=== PATIENT | male | born 1990 | race Caucasian/White ===

== ENCOUNTER 2020-08-12 12:17 | Emergency (ER) | payer OTHER ==
[2020-08-12] MEDS ORDERED: CEFAZOLIN 1 GM in DEXTROSE 5%-WATER - 50 ML IVPB ONE (12:25)
[2020-08-12] MEDS ORDERED: DIPHTH,PERTUSS(ACELL),TET 0.5 ML DISP.SYRIN IM ONE ×2 (12:25→12:43)
[2020-08-12] MEDS ORDERED: KETOROLAC TROMETHAMINE 30 MG/1 ML VIAL IVPUSH ONE (12:29)
[2020-08-12] MEDS ORDERED: KETOROLAC TROMETHAMINE 30 MG/1 ML VIAL ONE (12:31)
[2020-08-12 12:32] VITALS: BMI 24.3
[2020-08-12] MEDS ORDERED: ceFAZolin SODIUM 1 GM VIAL ONE (12:43)
[2020-08-12 13:20] LABS: BASO % 0.4 % (0-2.0); EOS % 1.6 % (0-4.5); HEMOGLOBIN 16.1 GM/dl (11.7-16.9); LYMPH % 32.3 % (8-40); MCH 29.8 pg (25.7-33.7); MCHC 35.1 g/dl (32.0-35.9); MEAN CELL VOLUME 84.9 fl (80-96); MEAN PLT VOLUME 7.7 fl (7.5-11.1); MONO % 8.2 % (3.8-10.2); NEUT % 57.5 % (42.8-82.8); PLATELET COUNT 264 K/MM3 (134-434); RBC 5.42 M/mm3 (4.00-5.60); RDW 12.9 % (11.9-15.9)
[2020-08-12 13:21] LABS: ALBUMIN 4.8 g/dl (3.4-5.0); BILIRUBIN,TOTAL 0.7 mg/dl (0.2-1); CALCIUM 8.8 mg/dl (8.5-10); CREATININE 1.1 mg/dl (0.55-1.3); POTASSIUM 3.3 mmol/L (3.5-5.1); TOT PROT 7.3 g/dl (6.4-8.2)
[2020-08-12] MEDS ORDERED: morphine CARPU-JECT 4 MG/1 ML DISP.SYRIN IVPUSH ONE (13:42)
[2020-08-12] MEDS ORDERED: morphine SULFATE 4 MG/ML VIAL ONE (13:49)
[2020-08-12] MEDS ORDERED: SODIUM CHLORIDE 1,000 ML IV STA (13:57)
[2020-08-12] MEDS ORDERED: LIDOCAINE HCL 2% (20ML MULTI-DOSE VIAL) ONE (18:18)
[2020-08-12] MEDS ORDERED: IBUPROFEN 400 MG TABLET (FP) PO ONE ×2 (19:06→19:20)
[2020-08-12 19:29] VITALS: BP 125/77; PULSE 66; TEMP 98.1
== END 2020-08-12 19:43 | disposition home or self-care (01) ==
LOC: FER 12:17
PROC: 3E0234Z Introduction of Serum, Toxoid and Vaccine into Muscle, Percutaneous Approach (ICD-10-PCS; principal; 2020-08-12)
PROC: 3E0333Z Introduction of Anti-inflammatory into Peripheral Vein, Percutaneous Approach (ICD-10-PCS; 2020-08-12)
PROC: 3E033NZ Introduction of Analgesics, Hypnotics, Sedatives into Peripheral Vein, Percutaneous Approach (ICD-10-PCS; 2020-08-12)
PROC: 3E0337Z Introduction of Electrolytic and Water Balance Substance into Peripheral Vein, Percutaneous Approach (ICD-10-PCS; 2020-08-12)
DX: S67.191A Crushing injury of left index finger, initial encounter (principal)
CPT/HCPCS: 36415; 73140-TC-LT-FY; 80053; 85025; 90715; 99284-25